=== PATIENT | female | born 1970 | race Caucasian/White ===

== ENCOUNTER 2020-04-11 05:26 | Emergency (ER) | payer BC, OTHER ==
--- NOTE | 2020-04-11 06:01 | EDM.PDOC ---
ED HPI GENERAL MEDICAL PROBLEM - General Chief Complaint: Cardiovascular Problem Stated Complaint: SOB Time Seen by Provider: 04/11/20 05:51 - History of Present Illness INITIAL COMMENTS - FREE TEXT/NARRATIVE: 49-year-old female presents the emergency room with chest pain. Patient awoke around 2 this morning with dental pain. The patient recently had some dental work done she took some ibuprofen this is getting better. However she had a hard time getting back to sleep and around 3 she developed some chest discomfort and unusual sensation in both arms and discomfort in her shoulders. She also had an unusual feeling in her stomach that she has a hard time describing. The patient does not have a prior history of coronary artery disease however does have a history of anxiety. The night before tonight she had a similar episode but not as severe prior to that episode she had a couple glasses of wine with family. The patient has significant family history of coronary artery disease her mom had stents in her 70s her father had an [place] at age 64 great grandfather had an [place] in his 30s. The patient does not smoke or have any other social risk factors. The patient had an episode of esophageal spasm sometime back but this is acting different. At this point the patient still feels like she has a lump just above her stomach but all other symptoms have resolved - Related Data Allergies Allergy/AdvReac Type Severity Reaction Status Date / Time No Known Allergies Allergy Verified 04/11/20 05:48 Home Meds: Home Meds . 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 History: Gestational Diabetes Neurological History: Reports: None Psychiatric History: Reports: Anxiety Other Endocrine/Metabolic History: HX of blood sugar variations, hypoglycemia - Past Surgical History GI Surgical History: Reports: Appendectomy, EGD Female Surgical History: Reports: Section, Hysterectomy Social & Family History - Family History Cardiac: Reports: Afib - Tobacco Use Smoking Status *Q: Never Smoker Second Hand Smoke Exposure: No - Caffeine Use Caffeine Use: Reports: Coffee Caffeine Use Comment: 2 cups daily - Recreational Drug Use Recreational Drug Use: No ED ROS GENERAL - Review of Systems Review Of Systems: See Below Constitutional: Reports: No Symptoms HEENT: Reports: Dental Pain (Recently had some dental work done) Respiratory: Reports: No Symptoms Cardiovascular: Reports: Chest Pain, Other (History of present illness) Endocrine: Reports: No Symptoms GI/Abdominal: Reports: No Symptoms, Other (She had an odd sensation in her stomach earlier this evening but this is resolved) : Reports: No Symptoms Musculoskeletal: Reports: No Symptoms Skin: Reports: No Symptoms Neurological: Reports: No Symptoms Psychiatric: Reports: Anxiety ED EXAM, GENERAL - Physical Exam Exam: See Below Exam Limited By: No Limitations General Appearance: Alert, No Apparent Distress Eye Exam: Bilateral Eye: Normal Inspection Ears: Normal External Exam, Normal Canal, Hearing Grossly Normal, Normal TMs Nose: Normal Inspection, Normal Mucosa, No Blood Throat/Mouth: Normal Inspection, Normal Teeth (No acute changes noted along the gumline or the teeth), Normal Oropharynx Head: Atraumatic, Normocephalic Neck: Normal Inspection, Supple, Non-Tender, Full Range of Motion. No: Lymphadenopathy (L), Lymphadenopathy (R) Respiratory/Chest: No Respiratory Distress, Lungs Clear, Normal Breath Sounds Cardiovascular: Regular Rate, Rhythm, No Edema, No Murmur GI/Abdominal: Normal Bowel Sounds, Soft, Tender (Minimal discomfort in both lower quadrants probably normal exam). No: Guarding, Rigid, Rebound Back Exam: Normal Inspection. No: CVA Tenderness (L), CVA Tenderness (R) Extremities: Normal Inspection, No Pedal Edema Course - Vital Signs Last Recorded V/S: Last Vital Signs Temp 36.1 C 04/11/20 05:45 Pulse 89 04/11/20 05:45 Resp 16 04/11/20 05:45 BP 145/92 H 04/11/20 05:45 Pulse Ox 99 04/11/20 05:45 - Orders/Labs/Meds Orders: Active Orders 24 hr Category Date Time Status EKG 12 Lead [EKG Documentation Completion] [RC] STAT Care 04/11/20 05:52 Active Labs: Laboratory Tests 04/11/20 04/11/20 04/11/20 Range/Units 06:20 06: 06:20 WBC 5.36 (3.98-10.04) K/mm3 RBC 4.18 (3.98-5.22) M/mm3 Hgb 13.4 (11.2-15.7) gm/dl Hct 39.7 (34.1-44.9) % MCV 95.0 H (79.4-94.8) fl MCH 32.1 (25.6-32.2) pg MCHC 33.8 (32.2-35.5) g/dl RDW Std Deviation 42.5 (36.4-46.3) fL Plt Count 253 (182-369) K/mm3 MPV 9.2 L (9.4-12.3) fl Neut % (Auto) 69.1 (34.0-71.1) % Lymph % (Auto) 21.1 (19.3-51.7) % [place] % (Auto) 8.0 (4.7-12.5) % Eos % (Auto) 0.7 (0.7-5.8) Baso % (Auto) 0.9 (0.1-1.2) % Neut # (Auto) 3.70 (1.56-6.13) K/mm3 Lymph # (Auto) 1.13 L (1.18-3.74) K/mm3 [place] # (Auto) 0.43 H (0.24-0.36) K/mm3 Eos # (Auto) 0.04 (0.04-0.36) K/mm3 Baso # (Auto) 0.05 (0.01-0.08) K/mm3 PT 9.9 (9.7-12.0) SECONDS INR < 0.93 APTT 27 (22-31) SECONDS Sodium 136 (136-145) mEq/L Potassium 3.8 (3.5-5.1) mEq/L Chloride 103 (98-107) mEq/L Carbon Dioxide 24 (21-32) mEq/L Anion Gap 12.8 (5-15) BUN 14 (7-18) mg/dL Creatinine 1.0 (0.55-1.02) mg/dL Est Cr Clr Drug Dosing 69.40 mL/min Estimated GFR (MDRD) 59 (>60) mL/min BUN/Creatinine Ratio 14.0 (14-18) Glucose 118 H (74-106) mg/dL Calcium 8.9 (8.5-10.1) mg/dL Total Bilirubin 0.4 (0.2-1.0) mg/dL AST 16 (15-37) U/L ALT 23 (14-59) U/L Alkaline Phosphatase 47 (46-116) U/L Troponin I < 0.017 (0.00-0.056) ng/mL Total Protein 6.9 (6.4-8.2) g/dl Albumin 3.5 (3.4-5.0) g/dl Globulin 3.4 gm/dL Albumin/Globulin Ratio 1.0 (1-2) - Re-Assessments/Exams Free Text/Narrative Re-Assessment/Exam: 04/11/20 07:49 Laboratory evaluation is unrevealing troponins negative. Her heart score is 2 one-point for age and 1.4 to rest risk factors 1 family history with family history and the patient has hyperlipidemia. And one-point for her age. We discussed the implications of this and 1.7% of the population with a score like this having a major acute coronary event in the next 6 weeks. The patient would like to be discharged and discuss this issue with her regular provider which is reasonable as she is low risk. Offered to give her something for anxiety but she would like to hold off on this at this time. Departure - Departure Time of Disposition: 07:52 Disposition: Home, Self-Care 01 Clinical Impression: Anxiety, Chest pain Referrals: PCP,Not In Area [Primary Care Provider] - Forms: ED Department Discharge Additional Instructions: Return to the emergency room with any questions problems or worsening symptoms. Follow-up with your regular physician and discuss your anxiety and discussed the chest pain. Discussed the pros and cons of cardiac stress testing either a stress Cardiolite or stress echo. Take a baby aspirin daily 81 mg preferably enteric-coated. Sepsis Event Note (ED) - Evaluation Sepsis Screening Result: No Definite Risk - Focused Exam Vital Signs: Vital Signs Temp Pulse Resp BP Pulse Ox 04/11/20 05:45 36.1 C 89 16 145/92 H 99 - My Orders Last 24 Hours: My Active Orders 04/11/20 05:52 EKG 12 Lead [EKG Documentation Completion] [RC] STAT - Assessment/Plan Last 24 Hours: My Active Orders 04/11/20 05:52 EKG 12 Lead [EKG Documentation Completion] [RC] STAT
[2020-04-11 09:09] VITALS: BP 125/78; PULSE 70
== END 2020-04-11 08:50 | disposition home or self-care (01) ==
LOC: JD.ED 05:26
DX: R07.89 Other chest pain (principal); F41.9 Anxiety disorder, unspecified
CPT/HCPCS: 36415; 80053; 84484; 85025; 85610; 85730; 93005; 99285-25